=== PATIENT | female | born 1945 | race Caucasian/White ===

== ENCOUNTER 2020-11-12 12:27 | Outpatient (REF) | payer OTHER, SELFPAY ==
--- NOTE | ~2020-11-12 | XR_ITS ---
EXAMINATION: XR PELVIS CLINICAL INFORMATION: Pelvic pain. COMPARISON: None TECHNIQUE: AP view of the pelvis. FINDINGS: Severe right hip degenerative joint changes are seen with joint space narrowing and periarticular sclerosis, most pronounced in the superior aspect of the joint. Mild left hip degenerative joint changes are seen. There is no acute fracture or dislocation. Mild to moderate degenerative changes are noted in the inferior lumbar spine. XR/XR pelvis 1-2V IMPRESSION: 1. Severe right and mild left hip degenerative joint changes suggesting osteoarthritis. No acute abnormality. 2. Mild to moderate degenerative changes in the visualized inferior lumbar spine.
== END 2020-11-12 12:28 | disposition home or self-care (01) ==
LOC: HO.HOSX 12:27
PROVIDERS: Visit Provider Orthopaedic Surgery
DX: M16.11 Unilateral primary osteoarthritis, right hip (principal); M25.551 Pain in right hip; E11.9 Type 2 diabetes mellitus without complications; I10 Essential (primary) hypertension; R10.2 Pelvic and perineal pain; Z86.718 Personal history of other venous thrombosis and embolism
CPT/HCPCS: 72170